=== PATIENT | female | born 1990 | race Caucasian/White ===

== ENCOUNTER 2023-10-25 19:49 | Emergency (ER) | payer OTHER ==
[~2023-10-25] VITALS: Ht 182.8 cm; Wt 181.4 kg
[2023-10-25 20:46] LABS: BASO # 0.1 10*3/uL (0.0-0.1); BASO % 0.7 % (0.0-1.0); EOS # 0.2 10*3/uL (0.0-0.4); EOS % 2.1 % (1.0-4.0); LYMPH % 22.1 % (27.0-41.0); MEAN CELL VOLUME 91.1 fl (81.0-99.0); MEAN CORPUSCULAR HGB 32.7 pg (27.0-31.0); MEAN CORPUSCULAR HGB CONC 35.9 g/dl (33.0-37.0); MEAN PLATELET VOLUME 9.2 fl (9.6-12.3); MONO # 0.7 10*3/uL (0.1-1.0); MONO % 7.4 % (3.0-9.0); NEUT # 6.2 10*3/uL (2.3-7.9); NEUT % 67.5 % (47.0-73.0); PLATELET COUNT AUTOMATED 251 10*3/uL (130-400); RED CELL DISTRI WIDTH 12.7 % (0-14.5); WHITE BLOOD COUNT 9.1 10*3/uL (4.8-10.8)
[2023-10-25 21:01] LABS: BILIRUBIN Negative (Negative); BLOOD Trace-Intact (Negative); CLARITY Clear (Clear); COLOR Yellow (Yellow); GLUCOSE 3+ (Negative); KETONE Trace (Negative); LEUKO ESTERASE Negative (Negative); NITRITE Negative (Negative); SPECIFIC GRAVITY >= 1.030 (1.001-1.030); UROBILINOGEN 0.2 E.U./dl (0.0-1.0)
[2023-10-25 21:10] LABS: BUN 11 mg/dl (9-23); CHLORIDE 101 mmol/L (98-107); POTASSIUM 3.9 mmol/L (3.4-5.1)
[2023-10-25] MEDS ORDERED: SODIUM CHLORIDE 0.9% 1,000 ML IV ONE ×2 (21:20)
[2023-10-25] MEDS ORDERED: INSULIN REGULAR, HUMAN 1 UNIT/0.01 ML IV ONE (21:20)
== END 2023-10-25 21:38 | disposition home or self-care (01) ==
LOC: ED 19:49
PROVIDERS: Internal Medicine
DX: E11.65 Type 2 diabetes mellitus with hyperglycemia (principal); R63.1 Polydipsia

== ENCOUNTER 2023-10-27 02:04 | Emergency (ER) | payer OTHER ==
[~2023-10-27] VITALS: Ht 182.8 cm; Wt 149.7 kg
[2023-10-27 02:42] LABS: BILIRUBIN Negative (Negative); BLOOD Trace-Intact (Negative); CLARITY Clear (Clear); COLOR Yellow (Yellow); GLUCOSE 3+ (Negative); KETONE Negative (Negative); LEUKO ESTERASE Negative (Negative); NITRITE Negative (Negative); PH 5.5 (4.5-8.0); SPECIFIC GRAVITY >= 1.030 (1.001-1.030); UROBILINOGEN 0.2 E.U./dl (0.0-1.0)
[2023-10-27 02:49] LABS: BACTERIA 1+; WBC 51-100 wbc/hpf (0-5)
[2023-10-27] MEDS ORDERED: INSULIN REGULAR, HUMAN 1 UNIT/0.01 ML SC ONE (02:50)
== END 2023-10-27 03:14 | disposition left against medical advice (07) ==
LOC: ED 02:04
PROVIDERS: Internal Medicine
DX: E11.65 Type 2 diabetes mellitus with hyperglycemia (principal); R11.0 Nausea; R63.0 Anorexia; Z53.29 Procedure and treatment not carried out because of patient's decision for other reasons

== ENCOUNTER 2023-10-31 08:30 | Emergency (ER) | payer OTHER ==
[~2023-10-31] VITALS: Ht 182.8 cm; Wt 149.7 kg
[2023-10-31 10:22] LABS: BILIRUBIN Negative (Negative); BLOOD 1+ (Negative); CLARITY Clear (Clear); COLOR Yellow (Yellow); GLUCOSE 3+ (Negative); KETONE Negative (Negative); LEUKO ESTERASE Negative (Negative); NITRITE Negative (Negative); PH 5.5 (4.5-8.0); SPECIFIC GRAVITY >= 1.030 (1.001-1.030); UROBILINOGEN 0.2 E.U./dl (0.0-1.0)
[2023-10-31 10:54] LABS: RBC 21-30 rbc/hpf (0-2); WBC TNTC wbc/hpf (0-5)
[2023-10-31] MEDS ORDERED: CIPRO500 MG PO (11:52)
[2023-10-31] MEDS ORDERED: Ciprofloxacin Hydrochloride 500 MG TAB PO ONE (11:55)
== END 2023-10-31 12:10 | disposition home or self-care (01) ==
LOC: ED 08:30
PROVIDERS: Emergency Medicine
DX: N39.0 Urinary tract infection, site not specified (principal); E11.9 Type 2 diabetes mellitus without complications

== ENCOUNTER 2023-10-31 20:29 | Emergency (ER) | payer OTHER ==
[~2023-10-31 20:29] MED LIST: CIPRO500 MG PO
[2023-10-31] MEDS ORDERED: INSULIN REGULAR, HUMAN 1 UNIT/0.01 ML IV ONE ×2 (21:40→23:50)
[2023-10-31] MEDS ORDERED: SODIUM CHLORIDE 0.9% 1,000 ML IV ONE ×2 (21:40→23:50)
[2023-10-31 22:03] LABS: BASO % 0.3 % (0.0-1.0); EOS # 0.2 10*3/uL (0.0-0.4); EOS % 2.4 % (1.0-4.0); HEMATOCRIT 38.7 % (37.0-47.0); LYMPH # 1.6 10*3/uL (1.3-4.4); LYMPH % 25.7 % (27.0-41.0); MEAN CELL VOLUME 91.9 fl (81.0-99.0); MEAN CORPUSCULAR HGB 32.8 pg (27.0-31.0); MEAN CORPUSCULAR HGB CONC 35.7 g/dl (33.0-37.0); MONO # 0.5 10*3/uL (0.1-1.0); MONO % 8.5 % (3.0-9.0); NEUT # 3.9 10*3/uL (2.3-7.9); NEUT % 62.8 % (47.0-73.0); PLATELET COUNT AUTOMATED 224 10*3/uL (130-400); RED BLOOD COUNT 4.21 10*6/uL (4.10-5.10); RED CELL DISTRI WIDTH 12.3 % (0-14.5); WHITE BLOOD COUNT 6.2 10*3/uL (4.8-10.8)
[2023-10-31 22:30] LABS: BUN 9 mg/dl (9-23); CHLORIDE 101 mmol/L (98-107); POTASSIUM 3.6 mmol/L (3.4-5.1)
== END 2023-11-01 00:35 | disposition left against medical advice (07) ==
LOC: ED 20:29
PROVIDERS: Nurse Practitioner Family
DX: E11.65 Type 2 diabetes mellitus with hyperglycemia (principal); Z91.199 Patient's noncompliance with other medical treatment and regimen due to unspecified reason; R32 Unspecified urinary incontinence; Z53.29 Procedure and treatment not carried out because of patient's decision for other reasons

== ENCOUNTER → 2023-11-08 | Outpatient (CLI) | payer OTHER | END | disposition home or self-care (01) | LOC: LAB 15:54 → RESCLI 15:54 | PROVIDERS: ATTEND Internal Medicine | DX: E11.40 Type 2 diabetes mellitus with diabetic neuropathy, unspecified (principal); F41.9 Anxiety disorder, unspecified; F17.210 Nicotine dependence, cigarettes, uncomplicated; E78.5 Hyperlipidemia, unspecified; F32.A Depression, unspecified; E55.9 Vitamin D deficiency, unspecified; F90.9 Attention-deficit hyperactivity disorder, unspecified type; I10 Essential (primary) hypertension; Z33.1 Pregnant state, incidental; Z79.84 Long term (current) use of oral hypoglycemic drugs; Z79.899 Other long term (current) drug therapy ==

== ENCOUNTER → 2023-11-10 | Outpatient (CLI) | payer OTHER ==
[2023-11-10 14:19] LABS: BASO # 0.1 10*3/uL (0.0-0.1); BASO % 0.6 % (0.0-1.0); EOS # 0.2 10*3/uL (0.0-0.4); EOS % 2.2 % (1.0-4.0); HEMATOCRIT 42.9 % (37.0-47.0); LYMPH # 1.7 10*3/uL (1.3-4.4); LYMPH % 21.2 % (27.0-41.0); MEAN CELL VOLUME 93.1 fl (81.0-99.0); MEAN CORPUSCULAR HGB 32.3 pg (27.0-31.0); MEAN CORPUSCULAR HGB CONC 34.7 g/dl (33.0-37.0); MEAN PLATELET VOLUME 8.8 fl (9.6-12.3); MONO # 0.6 10*3/uL (0.1-1.0); MONO % 7.7 % (3.0-9.0); NEUT # 5.6 10*3/uL (2.3-7.9); NEUT % 67.9 % (47.0-73.0); PLATELET COUNT AUTOMATED 250 10*3/uL (130-400); RED BLOOD COUNT 4.61 10*6/uL (4.10-5.10); RED CELL DISTRI WIDTH 12.4 % (0-14.5); WHITE BLOOD COUNT 8.2 10*3/uL (4.8-10.8)
[2023-11-10 14:28] LABS: URINE CREATININE RANDOM 41.12 mg/dL
[2023-11-10 14:57] LABS: ALKALINE PHOSPHATASE 142 U/L (46-116); BUN 8 mg/dl (9-23); CHLORIDE 103 mmol/L (98-107); CHOLESTEROL 143 mg/dL (<200); POTASSIUM 3.7 mmol/L (3.4-5.1); SGPT/ALT 75 U/L (5-49); TOTAL PROTEIN 6.9 gm/dL (6.0-8.0); TRIGLYCERIDES 799 mg/dl (<150); VITAMIN D, 25-HYDROXY 26.4 ng/mL (30-100)
== END | disposition home or self-care (01) ==
LOC: LAB 13:57
PROVIDERS: Student in an Organized Health Care Education/Training Program; ATTEND Internal Medicine
DX: Z33.1 Pregnant state, incidental (principal)

== ENCOUNTER 2023-11-14 23:44 | Emergency (ER) | payer OTHER ==
[~2023-11-14] VITALS: Ht 182.8 cm; Wt 145.1 kg
[2023-11-15] MEDS ORDERED: Ketorolac Tromethamine 60 MG/2 ML VIAL IM ONE (00:25)
== END 2023-11-15 00:53 | disposition home or self-care (01) ==
LOC: ED 23:44
DX: M79.605 Pain in left leg (principal); M79.604 Pain in right leg; E11.9 Type 2 diabetes mellitus without complications

== ENCOUNTER → 2023-11-24 | Outpatient (CLI) | payer OTHER | END | disposition home or self-care (01) | LOC: US 08:00 | PROVIDERS: ATTEND Internal Medicine | DX: K76.0 Fatty (change of) liver, not elsewhere classified (principal); R74.01 Elevation of levels of liver transaminase levels ==

== ENCOUNTER → 2023-12-06 | Outpatient (CLI) | payer OTHER ==
[~2023-12-06] MED LIST changes: +ABILIFY15 MG PO; +DEXTROAMPH SACC20 M1 PO; +LISINOPRIL10 M1 PO
[2023-12-06 17:36] LABS: ALKALINE PHOSPHATASE 173 U/L (46-116); BUN 6 mg/dl (9-23); CHLORIDE 101 mmol/L (98-107); POTASSIUM 3.5 mmol/L (3.4-5.1); SGPT/ALT 56 U/L (5-49); TOTAL PROTEIN 7.5 gm/dL (6.0-8.0)
[2023-12-08 16:09] LABS: GLUTAMIC ACID DECARB AB <5.0 U/mL (0.0-5.0)
== END | disposition home or self-care (01) ==
LOC: RESCLI 01:44
PROVIDERS: ATTEND Internal Medicine
DX: E55.9 Vitamin D deficiency, unspecified (principal); E11.9 Type 2 diabetes mellitus without complications; E78.1 Pure hyperglyceridemia; I10 Essential (primary) hypertension; F32.A Depression, unspecified; Z32.00 Encounter for pregnancy test, result unknown; Z79.899 Other long term (current) drug therapy

== ENCOUNTER 2023-12-09 18:01 | Emergency (ER) | payer OTHER ==
[~2023-12-09] VITALS: Ht 182.8 cm; Wt 142.0 kg
[~2023-12-09 18:01] MED LIST changes: -ABILIFY15 MG PO; -DEXTROAMPH SACC20 M1 PO; -LISINOPRIL10 M1 PO
[2023-12-09] MEDS ORDERED: LISINOPRIL10 M1 PO (18:15)
[2023-12-09] MEDS ORDERED: DEXTROAMPH SACC20 M1 PO (18:15)
[2023-12-09] MEDS ORDERED: ABILIFY15 MG PO (18:16)
[2023-12-09 18:47] LABS: BASO % 0.3 % (0.0-1.0); EOS # 0.1 10*3/uL (0.0-0.4); EOS % 1.8 % (1.0-4.0); HEMATOCRIT 41.9 % (37.0-47.0); LYMPH # 1.4 10*3/uL (1.3-4.4); LYMPH % 21.5 % (27.0-41.0); MEAN CELL VOLUME 91.9 fl (81.0-99.0); MEAN CORPUSCULAR HGB 31.6 pg (27.0-31.0); MEAN CORPUSCULAR HGB CONC 34.4 g/dl (33.0-37.0); MEAN PLATELET VOLUME 9.2 fl (9.6-12.3); MONO # 0.4 10*3/uL (0.1-1.0); MONO % 5.7 % (3.0-9.0); NEUT # 4.6 10*3/uL (2.3-7.9); NEUT % 70.5 % (47.0-73.0); PLATELET COUNT AUTOMATED 217 10*3/uL (130-400); RED BLOOD COUNT 4.56 10*6/uL (4.10-5.10); RED CELL DISTRI WIDTH 11.9 % (0-14.5); WHITE BLOOD COUNT 6.5 10*3/uL (4.8-10.8)
[2023-12-09 18:48] LABS: VENOUS BLOOD GAS O2 SAT 81.8 % (60.0-85.0)
[2023-12-09 19:09] LABS: BILIRUBIN Negative (Negative); BLOOD Negative (Negative); CLARITY Clear (Clear); COLOR Yellow (Yellow); GLUCOSE 3+ (Negative); KETONE Negative (Negative); LEUKO ESTERASE Negative (Negative); NITRITE Negative (Negative); PH 5.5 (4.5-8.0); SPECIFIC GRAVITY >= 1.030 (1.001-1.030); UROBILINOGEN 0.2 E.U./dl (0.0-1.0)
[2023-12-09 19:13] LABS: CHLORIDE 99 mmol/L (98-107); POTASSIUM 3.9 mmol/L (3.4-5.1)
[2023-12-09 19:16] LABS: URINE AMPHETAMINES Negative (1000ng/ml); URINE BARBITURATES Negative (200ng/ml); URINE BENZODIAZEPINES Negative (200ng/ml); URINE CANNABINOIDS (THC) Negative (50ng/ml); URINE COCAINE Negative (300ng/ml); URINE METHADONE Negative (300ng/ml); URINE OPIATES Negative (300ng/ml); URINE PHENCYCLIDINE Negative (25ng/ml)
[2023-12-09 19:18] LABS: BUN < 5 mg/dl (9-23)
[2023-12-09 19:21] LABS: BACTERIA 1+; YEAST 1+
[2023-12-09] MEDS ORDERED: INSULIN REGULAR, HUMAN 15 UNIT IV ONE (19:25)
[2023-12-09] MEDS ORDERED: SODIUM CHLORIDE 0.9% 1,000 ML IV ONE (19:25)
[2023-12-09] MEDS ORDERED: INSULIN REGULAR, HUMAN 1 UNIT/0.01 ML IV ONE (19:35)
== END 2023-12-09 20:43 | disposition left against medical advice (07) ==
LOC: ED 18:01
PROVIDERS: Internal Medicine
DX: E10.65 Type 1 diabetes mellitus with hyperglycemia (principal); F41.9 Anxiety disorder, unspecified; Z87.891 Personal history of nicotine dependence; Z53.29 Procedure and treatment not carried out because of patient's decision for other reasons; Z79.899 Other long term (current) drug therapy

== ENCOUNTER 2023-12-10 13:41 | Emergency (ER) | payer OTHER ==
[~2023-12-10] VITALS: Ht 182.9 cm; Wt 142.0 kg
[~2023-12-10 13:41] MED LIST changes: +ABILIFY15 MG PO; +DEXTROAMPH SACC20 M1 PO; +LISINOPRIL10 M1 PO
[2023-12-10] MEDS ORDERED: SODIUM CHLORIDE 0.9% 1,000 ML IV ONE (14:20)
[2023-12-10 14:39] LABS: BASO % 0.6 % (0.0-1.0); EOS # 0.2 10*3/uL (0.0-0.4); EOS % 2.6 % (1.0-4.0); HEMATOCRIT 40.8 % (37.0-47.0); LYMPH # 1.6 10*3/uL (1.3-4.4); LYMPH % 24.1 % (27.0-41.0); MEAN CELL VOLUME 90.7 fl (81.0-99.0); MEAN CORPUSCULAR HGB 31.8 pg (27.0-31.0); MEAN PLATELET VOLUME 9.1 fl (9.6-12.3); MONO # 0.4 10*3/uL (0.1-1.0); MONO % 6.5 % (3.0-9.0); NEUT # 4.2 10*3/uL (2.3-7.9); PLATELET COUNT AUTOMATED 208 10*3/uL (130-400); RED CELL DISTRI WIDTH 11.7 % (0-14.5); VENOUS BLOOD GAS O2 SAT 89.1 % (60.0-85.0); WHITE BLOOD COUNT 6.4 10*3/uL (4.8-10.8)
[2023-12-10 15:07] LABS: ALKALINE PHOSPHATASE 174 U/L (46-116); BUN 7 mg/dl (9-23); CHLORIDE 101 mmol/L (98-107); POTASSIUM 3.6 mmol/L (3.4-5.1); SGPT/ALT 48 U/L (5-49); TOTAL PROTEIN 6.5 gm/dL (6.0-8.0)
[2023-12-10] MEDS ORDERED: INSULIN REGULAR, HUMAN 1 UNIT/0.01 ML IV ONE (15:30)
== END 2023-12-10 18:10 ==
LOC: ED 13:41
PROVIDERS: Nurse Practitioner Family
DX: E11.65 Type 2 diabetes mellitus with hyperglycemia (principal); R55 Syncope and collapse; Z59.00 Homelessness unspecified

== ENCOUNTER 2023-12-13 20:50 | Emergency (ER) | payer OTHER ==
[~2023-12-13] VITALS: Wt 181.4 kg
[2023-12-13] MEDS ORDERED: INSULIN REGULAR, HUMAN 1 UNIT/0.01 ML SC ONE (21:45)
== END 2023-12-13 22:35 | disposition home or self-care (01) ==
LOC: ED 20:50
DX: E11.65 Type 2 diabetes mellitus with hyperglycemia (principal)

== ENCOUNTER 2023-12-16 19:00 | Emergency (ER) | payer OTHER ==
[~2023-12-16] VITALS: Wt 158.8 kg
[2023-12-16 19:25] LABS: BASO % 0.4 % (0.0-1.0); EOS # 0.1 10*3/uL (0.0-0.4); EOS % 1.8 % (1.0-4.0); HEMATOCRIT 40.8 % (37.0-47.0); LYMPH # 1.5 10*3/uL (1.3-4.4); LYMPH % 20.2 % (27.0-41.0); MEAN CELL VOLUME 92.9 fl (81.0-99.0); MEAN CORPUSCULAR HGB 31.4 pg (27.0-31.0); MEAN CORPUSCULAR HGB CONC 33.8 g/dl (33.0-37.0); MONO # 0.5 10*3/uL (0.1-1.0); NEUT # 5.3 10*3/uL (2.3-7.9); NEUT % 70.5 % (47.0-73.0); PLATELET COUNT AUTOMATED 210 10*3/uL (130-400); RED BLOOD COUNT 4.39 10*6/uL (4.10-5.10); RED CELL DISTRI WIDTH 11.6 % (0-14.5); WHITE BLOOD COUNT 7.6 10*3/uL (4.8-10.8)
[2023-12-16 19:42] LABS: BILIRUBIN Negative (Negative); BLOOD Negative (Negative); CLARITY Clear (Clear); COLOR Yellow (Yellow); GLUCOSE 3+ (Negative); KETONE Trace (Negative); LEUKO ESTERASE Negative (Negative); NITRITE Negative (Negative); PH 5.5 (4.5-8.0); SPECIFIC GRAVITY >= 1.030 (1.001-1.030); UROBILINOGEN 0.2 E.U./dl (0.0-1.0)
[2023-12-16 19:52] LABS: CHLORIDE 101 mmol/L (98-107); POTASSIUM 3.9 mmol/L (3.4-5.1)
[2023-12-16 19:59] LABS: BUN < 5 mg/dl (9-23)
[2023-12-16] MEDS ORDERED: INSULIN REGULAR, HUMAN 1 UNIT/0.01 ML SC ONE (20:10)
[2023-12-16] MEDS ORDERED: CLINDAMYCIN HCL 300 MG CAPSULE PO ONE (20:10)
[2023-12-16] MEDS ORDERED: NYSTATIN 15 GM BOT T ONE (20:10)
[2023-12-16] MEDS ORDERED: Doxycycline Hyclate 100 MG CAP PO ONE (20:10)
[2023-12-16] MEDS ORDERED: VIBRAMYCIN100 MG PO (20:11)
[2023-12-16] MEDS ORDERED: NYSTATIN CREAM15 GM T (20:11)
[2023-12-16] MEDS ORDERED: CLEOCIN HCL300 MG PO (20:11)
[2023-12-16 20:22] LABS: YEAST 1+
== END 2023-12-16 20:31 | disposition home or self-care (01) ==
LOC: ED 19:00
PROVIDERS: Nurse Practitioner Family
DX: E10.65 Type 1 diabetes mellitus with hyperglycemia (principal); L02.31 Cutaneous abscess of buttock; E87.20 Acidosis, unspecified; L08.9 Local infection of the skin and subcutaneous tissue, unspecified; B36.9 Superficial mycosis, unspecified; E66.9 Obesity, unspecified; Z79.899 Other long term (current) drug therapy; Z68.30 Body mass index [BMI] 30.0-30.9, adult